=== PATIENT | female | born 2005 ===

== ENCOUNTER 2024-09-23 13:21 | Outpatient (RCR) | payer OTHER, SELFPAY | END 2024-09-23 23:59 | disposition home or self-care (01) | LOC: RST 13:21 | PROVIDERS: ATTENDING PHYSICIAN Otolaryngology; FAMILY PHYSICIAN Hospitalist | DX: J38.2 Nodules of vocal cords (principal); R49.0 Dysphonia; J02.9 Acute pharyngitis, unspecified; K21.9 Gastro-esophageal reflux disease without esophagitis | CPT/HCPCS: 92507; 92524 ==

== ENCOUNTER 2024-10-09 11:21 | Outpatient (RCR) | payer OTHER, SELFPAY | END 2024-10-09 23:59 | disposition home or self-care (01) | LOC: RST 11:21 | PROVIDERS: ATTENDING PHYSICIAN Otolaryngology; FAMILY PHYSICIAN Hospitalist | DX: J38.2 Nodules of vocal cords (principal); R49.0 Dysphonia; J02.9 Acute pharyngitis, unspecified; K21.9 Gastro-esophageal reflux disease without esophagitis | CPT/HCPCS: 92507 ==